=== PATIENT | female | born 1980 | race Two or more races ===

== ENCOUNTER 2017-03-09 07:47 | Inpatient (IN) ==
[2017-03-09 08:44] LABS: Apearance,Urine CLEAR (Clear); Bilirubin,Urine Negative (Negative); Blood, Urine Moderate mg/dL (Negative); Glucose,Urine (UA) Negative (Negative); Ketones,Urine Negative (Negative); Mucus,Urine Occasional /LPF (Occasional); Nitrite,Urine Negative (Negative); Protein,Urine Negative; RBC,Urine 4 /HPF (0-4); Squamous Epithelial Cell,Urine Occasional /HPF (0-10); Urine Color Yellow (Yellow); Urine Urobilinogen < 2.0 EU/DL (0.2-1.0); WBC,Urine 1 /HPF (0-6)
[2017-03-09] MEDS ORDERED: KETOROLAC 30 MG/1 ML VIAL ONE (10:20)
[2017-03-09] MEDS ORDERED: HYDROmorphone 2 MG/1 ML VIAL IV STA (10:59)
[2017-03-09] MEDS ORDERED: ONDANSETRON 4 MG/2 ML VIAL IV STA (10:59)
[2017-03-09] MEDS ORDERED: ONDANSETRON 4 MG/2 ML VIAL ONE (11:38)
[2017-03-09] MEDS ORDERED: HYDROmorphone 2 MG/1 ML VIAL ONE (11:38)
[2017-03-09] MEDS ORDERED: IBUPROFEN 800 MG TABLET PO PRN (12:12)
[2017-03-09] MEDS ORDERED: BISACODYL 10 MG SUPP RECTAL PRN (12:12)
[2017-03-09] MEDS ORDERED: ACETAMINOPHEN 325 MG TABLET PO PRN (12:12)
[2017-03-09] MEDS ORDERED: ONDANSETRON 4 MG/2 ML VIAL IV PRN ×2 (12:12→12:13)
[2017-03-09] MEDS ORDERED: MAGNESIUM HYDROXIDE SUSP 30 ML UDCUP PO PRN (12:12)
[2017-03-09] MEDS: LACTATED RINGERS 1,000 ML IV SCH ×2 (14:11→23:49)
[2017-03-09] MEDS: MEPERIDINE 50 MG/1 ML VIAL IV PRN ×2 (14:12→19:56)
[2017-03-09] MEDS ORDERED: INFLUENZA VIRUS VACCINE 0.5 ML SYRINGE IM ONE (14:58)
[2017-03-09] MEDS: ceFAZolin 2,000 MG in PREMIX 1 EACH IV SCH ×2 (15:39→22:44)
[2017-03-09 16:41] LABS: Basophils % 0.1 % (0.0-0.8); Eosinophils # 0.1 10*3/uL (0.0-0.87); Eosinophils % 1.2 % (0.00-10.9); Hematocrit 38.3 VOL% (35.7-47.0); Hemoglobin 12.3 GM/DL (12.0-16.0); Immature Granulocytes % 0.4 %; Immature Granulocytes Absolute 0.03 #; Lymphocytes # 1.7 10*3/uL (1.4-4.0); Lymphocytes % 20.9 % (21.3-54.2); Mean Corpuscular HGB Conc 32.1 GM/DL (32-36); Mean Corpuscular Hemoglobin 26 PG (27-34); Mean Corpuscular Volume 82.2 FL (87-102); Monocytes # 0.4 10*3/uL (0.11-0.8); Monocytes % 4.4 % (1.7-12.7); Neutrophils # 5.9 10*3/uL (1.4-7.4); Platelet Count 344 T/CUMM (130-400); Red Blood Count 4.66 MC/CUMM (3.8-5.5); Red Cell Distribution Width 15.9 % (9.3-17.3); White Blood Count 8.1 T/CUMM (4-12)
[2017-03-09 16:56] LABS: Alanine Aminotransferase 28 U/L (13-56); Albumin 3.9 G/DL (3.4-5.0); Alkaline Phosphatase 76 U/L (45-117); Aspartate Amino Transferase 15 U/L (0-37); Bilirubin,Total < 0.39 MG/DL (0.2-1.0); Blood Urea Nitrogen 11 MG/DL (7-18); Glucose 97 MG/DL (74-106); Osmolality,Calculated 281.1 MOS/KG (273-304); Potassium 3.9 MMOL/L (3.5-5.1); Sodium 142 MMOL/L (136-145); Total Protein 7.9 G/DL (6.4-8.3)
[2017-03-09] MEDS ORDERED: ZALEPLON 5 MG CAPSULE PO PRN (18:55)
[2017-03-09] MEDS ORDERED: SODIUM PHOSPHATE ENEMA 133 ML BOTTLE RECTAL ONE (19:49)
[2017-03-09] MEDS ORDERED: DOCUSATE SODIUM 100 MG CAPSULE PO SCH (21:00)
[2017-03-10] MEDS: ceFAZolin 2,000 MG in PREMIX 1 EACH IV SCH (06:36)
[2017-03-10 10:22] LABS: Apearance,Urine CLEAR (Clear); Bilirubin,Urine Negative (Negative); Blood, Urine Small mg/dL (Negative); Glucose,Urine (UA) Negative (Negative); Ketones,Urine Negative (Negative); Nitrite,Urine Negative (Negative); Protein,Urine Negative; RBC,Urine <1 /HPF (0-4); Urine Color Colorless (Yellow); Urine Specific Gravity 1.005 (1.001-1.035); Urine Urobilinogen < 2.0 EU/DL (0.2-1.0); WBC,Urine <1 /HPF (0-6)
[2017-03-10] MEDS ORDERED: BISACODYL 10 MG SUPP RECTAL PRN (11:06)
[2017-03-10] MEDS ORDERED: ONDANSETRON 4 MG/2 ML VIAL IV PRN ×2 (11:06→11:26)
[2017-03-10] MEDS ORDERED: ACETAMINOPHEN 325 MG TABLET PO PRN (11:06)
[2017-03-10] MEDS ORDERED: IBUPROFEN 800 MG TABLET PO PRN (11:06)
[2017-03-10] MEDS ORDERED: MAGNESIUM HYDROXIDE SUSP 30 ML UDCUP PO PRN (11:06)
[2017-03-10] MEDS ORDERED: DOCUSATE SODIUM 100 MG CAPSULE PO PRN (11:06)
[2017-03-10] MEDS ORDERED: BENZOCAINE/MENTHOL LOZENGE 18/BOX PO PRN (11:06)
[2017-03-10] MEDS ORDERED: KETOROLAC 30 MG/1 ML VIAL ONE (11:11)
[2017-03-10] MEDS ORDERED: ONDANSETRON 4 MG/2 ML VIAL ONE (11:11)
[2017-03-10] MEDS ORDERED: fentaNYL 100 MCG/2 ML VIAL ONE (11:11)
[2017-03-10] MEDS ORDERED: MIDAZOLAM 2 MG/2 ML VIAL ONE (11:11)
[2017-03-10] MEDS ORDERED: SEVOFLURANE 1 UNIT/15 MINUTE INH ONE (11:11)
[2017-03-10] MEDS ORDERED: PROPOFOL 200 MG/20 ML VIAL IV ONE (11:11)
[2017-03-10] MEDS ORDERED: HYDROmorphone 2 MG/1 ML VIAL ONE (11:12)
[2017-03-10] MEDS ORDERED: LACTATED RINGERS 1,000 ML IV ONE (11:12)
[2017-03-10] MEDS ORDERED: NEOSTIGMINE 10 MG/10 ML VIAL ONE (11:12)
[2017-03-10] MEDS: LACTATED RINGERS 1,000 ML IV SCH ×2 (11:12→16:23)
[2017-03-10] MEDS ORDERED: SUCCINYLCHOLINE 200 MG/10 ML VIAL ONE (11:12)
[2017-03-10] MEDS ORDERED: ACETAMINOPHEN 1,000 MG/100 ML VIAL IV ONE (11:12)
[2017-03-10] MEDS ORDERED: GLYCOPYRROLATE 0.4 MG/2 ML VIAL ONE (11:12)
[2017-03-10] MEDS ORDERED: ROCURONIUM 100 MG/10 ML VIAL IV ONE (11:12)
[2017-03-10] MEDS: HYDROmorphone 2 MG/1 ML VIAL IV PRN ×3 (11:30→11:45)
[2017-03-10] MEDS ORDERED: NALOXONE 0.4 MG/ML VIAL IV PRN (12:28)
[2017-03-10] MEDS ORDERED: HYDROmorphone PCA 30 MG/30 ML SYRINGE IV SCH (12:30)
[2017-03-10] MEDS ORDERED: MEPERIDINE 50 MG/1 ML VIAL ONE (13:20)
[2017-03-10] MEDS ORDERED: PROMETHAZINE 25 MG/1 ML VIAL IM PRN (13:21)
[2017-03-10] MEDS: MEPERIDINE 50 MG/1 ML VIAL IV PRN ×2 (13:26→16:23)
[2017-03-10 18:12] LABS: Hematocrit 31.4 VOL% (35.7-47.0); Hemoglobin 10.4 GM/DL (12.0-16.0)
[2017-03-11] MEDS: LACTATED RINGERS 1,000 ML IV SCH ×3 (00:42→19:10)
[2017-03-11 06:43] LABS: Basophils % 0.1 % (0.0-0.8); Eosinophils % 0.1 % (0.00-10.9); Hematocrit 27.1 VOL% (35.7-47.0); Immature Granulocytes % 0.3 %; Immature Granulocytes Absolute 0.04 #; Lymphocytes # 1.9 10*3/uL (1.4-4.0); Lymphocytes % 16.2 % (21.3-54.2); Mean Corpuscular HGB Conc 33.2 GM/DL (32-36); Mean Corpuscular Hemoglobin 27 PG (27-34); Mean Corpuscular Volume 80.2 FL (87-102); Mean Platelet Volume 9.2 FL (9.6-12.0); Monocytes # 0.7 10*3/uL (0.11-0.8); Monocytes % 6.4 % (1.7-12.7); Neutrophils # 8.9 10*3/uL (1.4-7.4); Neutrophils % 76.9 % (38.7-73.9); Platelet Count 235 T/CUMM (130-400); Red Blood Count 3.38 MC/CUMM (3.8-5.5); White Blood Count 11.6 T/CUMM (4-12)
[2017-03-11] MEDS: FERROUS SULFATE 325 MG TABLET PO SCH ×2 (09:49→21:26)
[2017-03-11] MEDS: METOCLOPRAMIDE 10 MG TABLET PO SCH ×2 (09:49→18:12)
[2017-03-11] MEDS ORDERED: SIMETHICONE CHEW 80 MG TABLET PO PRN (09:50)
[2017-03-11] MEDS: PANTOPRAZOLE 20 MG TABLET PO SCH ×2 (11:42→18:12)
[2017-03-11] MEDS: SOLIFENACIN 5 MG TABLET PO SCH (18:11)
[2017-03-12] MEDS: METOCLOPRAMIDE 10 MG TABLET PO SCH ×3 (02:01→17:51)
[2017-03-12] MEDS: SOLIFENACIN 5 MG TABLET PO SCH (08:53)
[2017-03-12] MEDS: PANTOPRAZOLE 20 MG TABLET PO SCH (08:53)
[2017-03-12] MEDS: FERROUS SULFATE 325 MG TABLET PO SCH ×2 (08:53→20:48)
[2017-03-12] MEDS: LACTATED RINGERS 1,000 ML IV SCH (08:54)
[2017-03-12] MEDS ORDERED: MAGNESIUM CITRATE 300 ML BOTTLE PO ONE (18:15)
[2017-03-13] MEDS: METOCLOPRAMIDE 10 MG TABLET PO SCH ×2 (03:25→03:45)
[2017-03-13] MEDS ORDERED: MAGNESIUM CITRATE 300 ML BOTTLE PO PRN (03:48)
[2017-03-13 07:11] VITALS: BP 114/73
[2017-03-13] MEDS ORDERED: ESTRADIOL VALERATE IM 100 MG/5 ML VIAL IM SCH (08:00)
[2017-03-13] MEDS ORDERED: INFLUENZA VIRUS VACCINE 0.5 ML SYRINGE IM ONE (10:30)
== END 2017-03-13 13:10 | disposition home or self-care (01) | DRG 743 ==
LOC: N.EDINP 07:47 → N.ED 07:47 → OBSVTOIN 10:59 → INTOOBSV 10:59 → N.EDINP 12:36 → N.OB 12:45
PROVIDERS: ADMIT Obstetrics & Gynecology; ATTEND Obstetrics & Gynecology